=== PATIENT | female | born 1980 | race Hispanic/Latino ===

== ENCOUNTER 2017-05-06 08:48 | Inpatient (IN) ==
[2017-05-04 14:58] LABS: MANUAL DIFF NEEDED? NO
[2017-05-04 15:16] LABS: BASO% 0.1 % (0.0-0.8); EOS# 0.04 X1000 (0.0-0.7); EOS% 0.6 % (0.0-10.0); HEMATOCRIT 38.4 % (37.0-47.0); HEMOGLOBIN 13.4 g/dL (12.0-16.0); IMM GRAN# 0.03 X1000 (0.0-0.04); IMM GRAN% 0.4 % (0.0-0.5); LYMPH# 1.68 X1000 (1.2-3.4); LYMPH% 23.6 % (20.5-51.1); MCH 31.5 PG (27-31); MCHC 34.9 g/dL (33-37); MCV 90.1 FL (81-99); MONO# 0.48 X1000 (0.11-0.59); MONO% 6.8 % (1.7-9.3); MPV 11.7 FL (7.4-10.4); NEUT% 68.5 % (42.2-75.2); PLT 186 X1000 (130-400); RBC 4.26 XMIL (4.2-5.4)
[2017-05-06] MEDS ORDERED: LR 500 ML IV ONE (09:20)
[2017-05-06] MEDS ORDERED: PEPCID PO ONE (09:20)
[2017-05-06] MEDS ORDERED: KEFZOL 1 GM/D5W 1 GM/50 ML IVPB IV PRN (09:20)
[2017-05-06] MEDS ORDERED: REGLAN PO ONE (09:20)
[2017-05-06] MEDS ORDERED: BICITRA PO ONE (09:45)
[2017-05-06] MEDS ORDERED: PEPCID IV ONE (09:45)
[2017-05-06] MEDS: LR 1,000 ML IV SCH ×2 (10:22→10:51)
[2017-05-06 11:41] LABS: URINE SOURCE VOIDED
[2017-05-06] MEDS ORDERED: DURAMORPH ONE (11:44)
[2017-05-06 11:48] LABS: BILIRUBIN URINE NEGATIVE (NEGATIVE); BLOOD URINE NEGATIVE (NEGATIVE); CLARITY CLEAR (CLEAR); COLOR YELLOW; LEUKOCYTES URINE TRACE (NEGATIVE); NITRITE URINE NEGATIVE (NEGATIVE); PH URINE 6.5; PROTEIN URINE TRACE mg/dL (NEGATIVE); UROBILINOGEN URINE NORMAL
[2017-05-06 11:55] LABS: UR AMPHETAMINES QUAL NONE DETECTED (NONE DETECT); UR BARBITUATES QUAL NONE DETECTED (NONE DETECT); UR BENZODIAZEPIN QUAL NONE DETECTED (NONE DETECT); UR CANNABINOIDS QUAL NONE DETECTED (NONE DETECT); UR COCAINE QUAL NONE DETECTED (NONE DETECT); UR MDMA QUAL NONE DETECTED (NONE DETECT); UR METHADONE QUAL NONE DETECTED (NONE DETECT); UR METHAMPHETAMINE QUAL NONE DETECTED (NONE DETECT); UR OPIATES QUAL NONE DETECTED (NONE DETECT); UR OXYCODONE QUAL NONE DETECTED (NONE DETECT); UR PCP QUAL NONE DETECTED (NONE DETECT); UR TCA QUAL NONE DETECTED (NONE DETECT)
[2017-05-06] MEDS ORDERED: AMBIEN PO PRN (13:48)
[2017-05-06] MEDS ORDERED: PITOCIN IM PRN (13:48)
[2017-05-06] MEDS ORDERED: DEMEROL IM PRN (13:48)
[2017-05-06] MEDS ORDERED: PHENERGAN IM PRN (13:48)
[2017-05-06] MEDS ORDERED: M-M-R II VACCINE SUBQ ONE (13:48)
[2017-05-06] MEDS ORDERED: HYDROXYZINE PO PRN (13:48)
[2017-05-06] MEDS ORDERED: MYLICON PO PRN (13:48)
[2017-05-06] MEDS ORDERED: BOOSTRIX VACCINE IM ONE (13:48)
[2017-05-06] MEDS ORDERED: CYTOTEC PO PRN (13:48)
[2017-05-06] MEDS ORDERED: DULCOLAX PR PRN (13:48)
[2017-05-06] MEDS ORDERED: PITOCIN 20 UNITS/LR 20 UNITS/1,000 ML IV.SOLN IV ONE (13:48)
[2017-05-06] MEDS ORDERED: HYDROXYZINE IM PRN (13:48)
[2017-05-06] MEDS ORDERED: HUMALOG (PARKWAY) SUBQ SCH (16:00)
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
[2017-05-06] MEDS ORDERED: LR 1,000 ML IV ONE ×2 (17:22→22:05)
[2017-05-06] MEDS: HUMALOG (PARKWAY) SUBQ SCH ×2 (17:36→21:13)
[2017-05-06] MEDS ORDERED: PERCOCET-5 PO ONE (17:45)
[2017-05-06] MEDS: TORADOL IV SCH ×2 (17:55→20:58)
[2017-05-06 18:02] LABS: HEMATOCRIT 29.5 % (37.0-47.0); HEMOGLOBIN 10.1 g/dL (12.0-16.0); MCH 31.6 PG (27-31); MCHC 34.2 g/dL (33-37); MCV 92.2 FL (81-99); MPV 11.8 FL (7.4-10.4); RBC 3.2 XMIL (4.2-5.4)
[2017-05-06] MEDS: MYLICON PO SCH ×2 (18:30→20:58)
[2017-05-06] MEDS: PERICOLACE PO SCH (20:58)
--- NOTE | 2017-05-06 21:30 | OPERATIVE NOTE ---
PROCEDURE DATE: 05/06/2017 PREOPERATIVE DIAGNOSIS: 1. Intrauterine at 37+ 6 weeks. 2. Insulin-dependent diabetes (uncontrolled) 3. History of section x2 with desire for repeat. 4. Undesired fertility. POSTOPERATIVE DIAGNOSIS: 1. Intrauterine at 37+ 6 weeks. 2. Insulin-dependent diabetes (uncontrolled) 3. History of section x2 with desire for repeat. 4. Undesired fertility. SURGEON: Beto Alvarado MD [employer]: Maryse Finch MD ANESTHESIA: [place]. PROCEDURE: 1. Repeat low transverse section with [place] bilateral tubal ligation. 2. Lysis of adhesions. FINDINGS: Uterus with extensive adhesive disease to anterior abdominal wall, normal bilateral ovaries, normal-appearing fallopian tubes with the exception of postsurgical changes from past reanastomosis. COMPLICATIONS: None apparent. ESTIMATED BLOOD LOSS: 750 mL. SPECIMENS REMOVED: Placenta, cord blood, bilateral fallopian tube segments. OPERATIVE COURSE: After the patient was identified and consents reviewed, spinal anesthesia was administered without complications. Patient is placed on the operative table in a dorsal supine position with a leftward tilt. Abdomen was prepped and draped in normal sterile fashion. A Pfannenstiel skin incision was made and carried through the underlying layer of fascia. This was extended laterally with Grace scissors. The superior portion of fascial incision was grasped with Echo clamps, elevated, and the underlying rectus muscle dissected off with Grace scissors. Inferior portion performed in a similar manner. The rectus muscles were then identified and in the midline with both blunt and sharp dissection. At this time, extensive anterior adhesions were noted from the uterus to the anterior abdominal wall. The adhesions were taken down with both sharp dissection as well as Bovie electrocautery. A bladder blade was then inserted. Low transverse hysterotomy was made. Membranes were ruptured. Clear fluid noted. Infant found to be in cephalic presentation. Infant delivered atraumatically with some difficulty secondary to extensive adhesive disease. Nose and mouth were bulb suctioned. Cord was clamped and cut. handed off to the waiting nursing staff. Cord blood was then obtained. Placenta was then manually extracted. The uterus was exteriorized and cleaned of all clots and debris. The hysterotomy was repaired with 0 chromic in a running, locked fashion. Bilateral fallopian tubes were identified. Past surgical changes from prior tubal as well as reanastomosis were noted. Midpoint of tube was grasped with a Marilyn clamp and a [place] tubal ligation was performed on the right fallopian tube. The contralateral side was performed in a similar manner. Bilateral fallopian tube segments were sent to Pathology. Adequate hemostasis was noted at tubal ligation site. The uterus was then returned to the intraperitoneal space. Attention was returned to the hysterotomy where again adequate hemostasis was noted. The peritoneum was then reapproximated using 0 chromic. The fascia was then reapproximated using 0 Vicryl in a running fashion. Subcutaneous tissue was closed with plain gut suture. The skin was closed with Biosyn as well as Dermabond. The patient tolerated the procedure well. She has taken to the recovery room afterwards in stable condition. cc: Beto Alvarado MD
[2017-05-07 00:56] LABS: HEMATOCRIT 18.7 % (37.0-47.0); HEMOGLOBIN 6.4 g/dL (12.0-16.0); MCH 31.7 PG (27-31); MCHC 34.2 g/dL (33-37); MCV 92.6 FL (81-99); MPV 11.5 FL (7.4-10.4); RBC 2.02 XMIL (4.2-5.4)
[2017-05-07] MEDS ORDERED: TYLENOL PO ONE (02:37)
[2017-05-07] MEDS ORDERED: BENADRYL PO ONE (02:39)
[2017-05-07] MEDS ORDERED: LASIX IV ONE (02:40)
[2017-05-07] MEDS: PITOCIN 10 UNITS/LR 10 UNIT/1,000 ML IV.SOLN IV SCH ×2 (03:00→03:02)
[2017-05-07] MEDS ORDERED: NS 500 ML IV SCH (03:03)
[2017-05-07] MEDS: TORADOL IV SCH ×2 (03:05→08:15)
[2017-05-07] MEDS: HUMALOG (PARKWAY) SUBQ SCH ×4 (06:27→21:27)
[2017-05-07] MEDS: PERCOCET-10 PO PRN ×3 (06:57→21:26)
[2017-05-07] MEDS: MYLICON PO SCH ×4 (09:14→21:26)
[2017-05-07] MEDS ORDERED: LR 1,000 ML IV SCH (13:48)
[2017-05-07 14:57] LABS: MANUAL DIFF NEEDED? NO
[2017-05-07 15:40] LABS: BASO% 0.1 % (0.0-0.8); EOS# 0.13 X1000 (0.0-0.7); EOS% 1.6 % (0.0-10.0); HEMATOCRIT 29.1 % (37.0-47.0); IMM GRAN# 0.02 X1000 (0.0-0.04); IMM GRAN% 0.2 % (0.0-0.5); LYMPH# 1.41 X1000 (1.2-3.4); LYMPH% 17.3 % (20.5-51.1); MCH 30.1 PG (27-31); MCHC 34.4 g/dL (33-37); MCV 87.7 FL (81-99); MONO# 0.83 X1000 (0.11-0.59); MONO% 10.2 % (1.7-9.3); MPV 10.5 FL (7.4-10.4); NEUT% 70.6 % (42.2-75.2); PLT 130 X1000 (130-400); RBC 3.32 XMIL (4.2-5.4)
[2017-05-07] MEDS ORDERED: OFIRMEV 1000 MG/ISOTONIC SOLN 1,000 MG/100 ML BOTTLE IV PRN (16:04)
[2017-05-07] MEDS ORDERED: DEMEROL PO PRN (16:07)
[2017-05-07] MEDS: PERICOLACE PO SCH (21:26)
[2017-05-08] MEDS: PERCOCET-10 PO PRN ×4 (03:57→21:10)
[2017-05-08 05:59] LABS: HEMATOCRIT 31.5 % (37.0-47.0); HEMOGLOBIN 10.8 g/dL (12.0-16.0)
[2017-05-08] MEDS: HUMALOG (PARKWAY) SUBQ SCH ×4 (06:23→21:10)
[2017-05-08] MEDS: MYLICON PO SCH ×4 (08:26→20:14)
[2017-05-08] MEDS: LR 1,000 ML IV SCH (09:54)
[2017-05-08] MEDS: PERICOLACE PO SCH (20:13)
[2017-05-09] MEDS: PERCOCET-10 PO PRN ×4 (04:06→17:16)
[2017-05-09 06:06] LABS: HEMATOCRIT 28.9 % (37.0-47.0); HEMOGLOBIN 9.5 g/dL (12.0-16.0); MCH 29.4 PG (27-31); MCHC 32.9 g/dL (33-37); MCV 89.5 FL (81-99); MPV 10.4 FL (7.4-10.4); RBC 3.23 XMIL (4.2-5.4)
[2017-05-09] MEDS: HUMALOG (PARKWAY) SUBQ SCH ×4 (06:36→20:12)
[2017-05-09] MEDS: MOTRIN PO PRN ×2 (07:48→17:16)
[2017-05-09] MEDS ORDERED: PROCARDIA PO ONE (09:08)
[2017-05-09] MEDS: MYLICON PO SCH ×4 (09:39→20:04)
[2017-05-09] MEDS: PROCARDIA PO SCH ×2 (13:15→17:16)
[2017-05-09] MEDS: PERICOLACE PO SCH (20:04)
[2017-05-10] MEDS: PERCOCET-5 PO PRN ×2 (04:16→12:20)
[2017-05-10] MEDS: MOTRIN PO PRN ×2 (04:16→12:20)
[2017-05-10] MEDS: HUMALOG (PARKWAY) SUBQ SCH ×2 (06:17→12:00)
[2017-05-10] MEDS: PROCARDIA PO SCH ×2 (09:28→12:21)
[2017-05-10] MEDS: MYLICON PO SCH ×2 (09:28→12:20)
--- NOTE | 2017-05-10 22:39 | DISCHARGE SUMMARY ---
ADMISSION DATE: 05/06/2017 DISCHARGE DATE: 05/10/2017 ADMITTING DIAGNOSES: 1. Term . 2. Previous section. Requesting repeat section. PRINCIPAL DIAGNOSIS: 1. Repeat section. 2. Anemia, requiring transfusion. 3. Diabetes, controlled. 4. Hypertension, controlled. SUMMARY: Ekaterina Drake is a 37-year-old, 3 para 2-0-0-2 at 38 weeks gestation. She was admitted to the hospital on 05/06 and underwent a repeat section. This was at the request of Maternal [facility] that she be delivered at this time. There were no intraoperative complications and she delivered an 8 pound 8 ounce female with Apgars of 8 at 1 minute and 10 at 5 minutes. Extensive adhesions were noted. Tubal sterilization was done per the patient's request. The patient had an admission hemoglobin and hematocrit of 10.1/29/5. After delivery, her hemoglobin and hematocrit dropped the point that transfusion was necessary. Post transfusion hemoglobin and hematocrit have remained stable with the latest one being 9.5/28.9. She was continued on insulin for her diabetes and was on a sliding scale with good control. Blood pressures became elevated and she was started on Procardia. This morning, she is afebrile, vital signs are stable. Her blood sugars are under good control. Incision is clean and dry. Cardiac and pulmonary examinations are normal. Ms. Drake is being discharged and we be seen back in the office on Thursday. She will call sooner if there are any problems. She will continue her insulin regimen. We are giving her Motrin and Percocet for pain. She will continue Procardia 10 mg 3 times a day. cc: MD Beto Langford MD
[2017-05-12 09:59] VITALS: BP 126/62
== END 2017-05-10 13:30 | disposition home or self-care (01) ==
LOC: P.LD 08:48 → P.WC 16:05
PROVIDERS: ADMIT Obstetrics & Gynecology; ATTEND Obstetrics & Gynecology